=== PATIENT | male | born 1985 | race Caucasian/White ===

== ENCOUNTER 2017-11-15 12:29 | Emergency (ER) | payer OTHER ==
[~2017-11-15] VITALS: Ht 170.2 cm; Wt 75.5 kg
[2017-11-15 12:36] VITALS: BP 120/57; TEMP 99
[2017-11-15] MEDS ORDERED: NORCO 325 MG-51 TAB PO (14:23)
[2017-11-15 14:37] VITALS: PULSE 82
== END 2017-11-15 14:40 | disposition home or self-care (01) ==
LOC: COL.ER 12:29
DX: S01.511A Laceration without foreign body of lip, initial encounter (principal); K01.1 Impacted teeth; F17.210 Nicotine dependence, cigarettes, uncomplicated; W22.09XA Striking against other stationary object, initial encounter